=== PATIENT | female | born 1980 | race Caucasian/White ===

== ENCOUNTER → 2023-03-10 09:34 | Outpatient (CLI) | payer OTHER, MEDICAID, SELFPAY ==
[2023-03-12 12:09] LABS: Fecal Immunochemical Test Negative (Negative)
== END ==
PROVIDERS: PCP Physician Assistant; Visit Provider Physician Assistant
DX: Z12.11 Encounter for screening for malignant neoplasm of colon (principal)
CPT/HCPCS: 82274

== ENCOUNTER → 2024-03-08 11:37 | Outpatient (CLI) | payer OTHER, MEDICAID, SELFPAY ==
[2024-03-08 20:49] LABS: Follicle Stimulating Hormone 4.99 mIU/mL
[2024-03-08 21:04] LABS: Estradiol, Total 49.8 pg/mL
[2024-03-09 16:44] LABS: Hep C Virus Ab w/Reflex Quant NEGATIVE s/c (NEGATIVE)
== END ==
PROVIDERS: PCP Physician Assistant; Visit Provider Nurse Practitioner Adult Health
DX: N95.1 Menopausal and female climacteric states (principal); Z11.59 Encounter for screening for other viral diseases
CPT/HCPCS: 82397; 82670; 83001; 86803

== ENCOUNTER → 2024-10-31 07:05 | Outpatient (CLI) | payer OTHER, SELFPAY ==
--- NOTE | 2024-10-31 07:06 | DI.ECHO.S_ITS ---
[facility] : : [address] : : [place] : : [id number] : : Phone: [phone] Echocardiogram Report + + :Name: PRAVIN GILLILAND Study Date: 10/31/2024 Height: 70 in : :[facility] ReadingLocation: Weight: 163 lb : : Gender: Female BSA: 1.9 m2 : :: 1980 Age: 44 yrs BP: 124/79 mmHg: :Reason For Study: CHEST PAIN : :Ordering Physician: CASSIE MOONEY Performed By: Casey Turner : :Referring: CASSIE MOONEY : + + Interpretation Summary 1. The left ventricular contractility is normal. Estimated ejection fraction is about 60% with no segmental wall motion abnormalities. No LVH. No diastolic dysfunction. 2. The right ventricular contractility is normal. 3. All cardiac chambers are of normal size. 4. No significant valvular abnormalities. 5. No intracardiac shunt on agitated saline contrast study. 6. No obvious intra masses nor thrombi. 7. No hemodynamically significant pericardial effusion. 8. Normal right-sided filling pressures. Conclusion: Normal biventricular function with no significant valvular nor structural abnormalities. Procedure: A two-dimensional transthoracic echocardiogram with color flow and Doppler was performed. A saline contrast injection was performed to assess for cardiac shunting. The study quality was technically good. There is no prior echocardiogram noted for this patient. The patient was in normal sinus rhythm during the exam. Left Ventricle: The left ventricle is normal in size. There is normal left ventricular wall thickness. There is no ventricular septal defect visualized. The ejection fraction is estimated to be 60-65%. There are no focal wall motion abnormalities. Diastolic parameters suggest probable normal left ventricular diastolic function and normal filling pressures. Right Ventricle: The right ventricle is normal in size and function. Atria: The left atrial size is normal. Right atrial size is normal. Injection of contrast documented no interatrial shunt. Mitral Valve: The mitral valve leaflets appear normal. There is no evidence of stenosis, fluttering, or prolapse. There is trace mitral regurgitation. Aortic Valve: The aortic valve is trileaflet. The aortic valve opens well. No aortic regurgitation is present. Tricuspid Valve: The tricuspid valve leaflets are thin and pliable. There is a trace or physiologic amount of tricuspid regurgitation. Pulmonic Valve: The pulmonic valve leaflets are thin and pliable; valve motion is normal. There is a trace or physiologic amount of pulmonic regurgitation. Great Vessels: The aortic root is normal size. The dimensions of the ascending aorta are normal. The pulmonary artery is normal size. The IVC is dilated (diameter is greater than 2.1 cm) yet it collapses greater than 50% with a sniff. This suggests a right atrial pressure of 8 mm Hg. Pericardium/ Pleura There is no pericardial effusion. There is no pleural effusion. MMode/2D Measurements & Calculations LVIDd: 4.9 cm LVOT diam: 2.1 cm LVIDs: 3.2 cm Ao root diam: 3.3 cm FS: 34.4 % asc Aorta Diam: 3.4 cm EPSS: 0.32 cm Ao Arch Diam (Prox Trans): 1.5 cm IVSd: 0.82 cm LVPWd: 0.70 cm LV alegria. diameter/BSA (cm/m^2): 2.6 LV sys. diameter/BSA (cm/m^2): 1.7 LA A2 area: 18.1 cm2 RA long axis: 4.8 cm LA A4 area: 17.1 cm2 RA area: 15.5 cm2 LA length (vol): 4.6 cm RA vol: 42.6 ml LA vol: 57.6 ml RA : 22.3 ml/m2 LA vol index: 30.1 ml/m2 IVC diam: 2.5 cm RVD1 (basal): 3.4 cm RVD2 (mid): 2.7 cm TAPSE: 3.0 cm Doppler Measurements & Calculations Ao V2 max: 111.1 cm/sec LVOT Max Ham: 98.5 cm/sec Ao V2 mean: 78.6 cm/sec LV V1 max P.9 mmHg Ao max P.9 mmHg LV V1 VTI: 24.2 cm Ao mean P.7 mmHg DALLAS(I,D): 3.1 cm2 Ao V2 VTI: 27.2 cm DALLAS(V,D): 3.1 cm2 sev ratio: 0.89 DALLAS indexed to BSA (cm^2/m^2): 1.6 MV E max ham: 85.2 cm/sec PA V2 max: 74.8 cm/sec MV A max ham: 42.9 cm/sec PA V2 mean: 54.2 cm/sec MV E/A: 2.0 PA mean P.3 mmHg Med Peak E' Ham: 9.0 cm/sec PA pr(Accel): 22.5 mmHg E/E' med: 9.4 Lat Peak E' Ham: 13.6 cm/sec E/E' lat: 6.2 E/e' average: 7.8 MV dec time: 0.17 sec SV(LVOT): 83.3 ml Reading Physician:TALA
--- NOTE | 2024-10-31 17:38 | DI.NM.S_ITS ---
DATE OF SERVICE: 10/31/2024 EXERCISE TREADMILL STRESS TEST PROCEDURE: Exercise treadmill stress test without imaging. ORDERING PROVIDER: Bonifacio Mooney MD. INDICATIONS: The patient is a 44-year-old female with palpitations with atypical chest discomfort. 1. The patient was able to exercise for 13 minutes 31 seconds on a standard Federico protocol suggesting exceptional exercise capacity with an ZHAO of -58%, achieving 14.8 METS. 2. She had a normal heart rate and blood pressure response to exercise, achieving a maximum heart rate of 188 bpm (107% of her predicted maximum). 3. She had moderate exertional dyspnea but no chest discomfort or other anginal symptoms. 4. Her resting ECG shows normal sinus rhythm with normal ST segments. There are no significant ST-segment shifts or arrhythmias with stress. IMPRESSION: 1. Normal exercise treadmill stress test for ischemia. 2. Exceptional exercise capacity without angina or arrhythmias. Nathalie Morgan - DEVIN/moni/KEVIN doc#: [id number]/job#: [id number] dd: 10/31/2024 17:13:00 dt: 10/31/2024 17:23:00 DICTATING MD/COPIES TO: Dave Pennington MD; Bonifacio Mooney MD COPIES MNE: BRANDEE;
== END ==
LOC: ECHO 07:05
PROVIDERS: PCP Physician Assistant; Referring Provider Internal Medicine; Visit Provider Internal Medicine
DX: R07.9 Chest pain, unspecified (principal)
CPT/HCPCS: 93017; 93306

== ENCOUNTER → 2025-04-04 15:32 | Outpatient (CLI) | payer OTHER, SELFPAY ==
--- NOTE | 2025-04-04 15:33 | DI.MRI.S_ITS ---
PROCEDURE: MR CERVICAL SPINE WO CON INDICATIONS: PAIN TECHNIQUE: Noncontrast sagittal T1 spin echo and T2 fast spin echo, sagittal STIR, foraminal oblique sagittal T2 fast spin echo, and axial gradient echo or T2 fast spin echo through the cervical spine. COMPARISON: None. FINDINGS: Image quality: Excellent Scoliosis of the upper thoracic spine, incompletely evaluated. Straightening of the cervical spine. Mild anterolisthesis C4 on C5. Mild retrolisthesis C5 on C6. Vertebral body height of cervical spine are well maintained. There is diffuse marrow edema of C5, C6, vertebral body, nonspecific and may be degenerative. Moderate fibrovascular end plate change at the left, superior endplate of C7. Multilevel disc desiccation disc bulge. Cord signal: Unremarkable Right neural foraminal stenosis: Moderate at C5-6, mild at C6-7, C7-T1, and T1-2. Left neural foraminal stenosis: Mild at C6-7. Axial images: C2-3: No central canal stenosis. Mild bilateral facet arthropathy. C3-4: Mild right facet arthropathy. No central canal stenosis. C4-5: No central canal stenosis. C5-6: Posterior disc osteophyte complex. Right uncovertebral arthropathy. Mild right facet arthropathy. Mild central canal stenosis. C6-7: Posterior disc osteophyte complex. Mild central canal stenosis. C7-T1: No central canal stenosis. Other soft tissue findings: Unremarkable IMPRESSION: 1. Multilevel degenerative changes, most pronounced at C5-6, where there is mild central canal stenosis, and moderate right neural foraminal stenosis. Dictated by: Mikayla Feliciano M.D. on 04/04/2025 at 17:04 Approved by: Mikayla Feliciano M.D. on 04/04/2025 at 17:13
== END ==
LOC: MRI 15:32
PROVIDERS: PCP Physician Assistant; Referring Provider Physician Assistant Surgical; Visit Provider Physician Assistant Surgical
DX: M53.82 Other specified dorsopathies, cervical region (principal); M48.02 Spinal stenosis, cervical region; M48.03 Spinal stenosis, cervicothoracic region; M47.812 Spondylosis without myelopathy or radiculopathy, cervical region; M25.78 Osteophyte, vertebrae
CPT/HCPCS: 72141